=== PATIENT | male | born 1955 | race Caucasian/White ===

== ENCOUNTER → 2017-05-26 | Outpatient (REF) | payer BC, OTHER ==
[2017-05-26 18:25] LABS: C REACTIVE PROTEIN QUANTITATIV 2.13 MG/DL (0.00-0.30)
== END ==
LOC: M LAB REF 17:22
DX: R10.9 Unspecified abdominal pain (principal)
CPT/HCPCS: 86140

== ENCOUNTER → 2017-06-02 | Outpatient (REF) | payer BC, OTHER ==
[2017-06-02 20:53] LABS: C REACTIVE PROTEIN QUANTITATIV 0.75 MG/DL (0.00-0.30)
== END ==
LOC: M LAB REF 19:12
DX: R10.9 Unspecified abdominal pain (principal); H81.10 Benign paroxysmal vertigo, unspecified ear
CPT/HCPCS: 86140

== ENCOUNTER → 2017-12-28 | Outpatient (CLI) | payer BC | LOC: M RAD 10:08 | DX: R22.42 Localized swelling, mass and lump, left lower limb (principal) | CPT/HCPCS: 93971 ==

== ENCOUNTER → 2017-12-29 | Outpatient (CLI) | payer BC | LOC: M WUC 15:05 | DX: R22.42 Localized swelling, mass and lump, left lower limb (principal); M77.32 Calcaneal spur, left foot; M17.12 Unilateral primary osteoarthritis, left knee | CPT/HCPCS: 73552 ==

== ENCOUNTER → 2017-12-30 | Outpatient (REF) | payer BC ==
[2017-12-31 14:18] LABS: C REACTIVE PROTEIN QUANTITATIV 0.78 MG/DL (0.00-0.30)
[2018-01-02 00:06] LABS: Lyme Disease IgG/IgM Antibodie <0.91 ISR (0.00-0.90); Lyme Disease IgM Ab Quantitati <0.80 index (0.00-0.79)
== END ==
LOC: M LAB REF 13:10
DX: M25.562 Pain in left knee (principal)

== ENCOUNTER → 2018-02-18 | Outpatient (CLI) | payer BC | LOC: M RAD 14:45 | DX: S83.232A Complex tear of medial meniscus, current injury, left knee, initial encounter (principal); M22.42 Chondromalacia patellae, left knee; M71.22 Synovial cyst of popliteal space [Baker], left knee; M25.462 Effusion, left knee; M25.562 Pain in left knee; M17.12 Unilateral primary osteoarthritis, left knee | CPT/HCPCS: 73721 ==

== ENCOUNTER → 2018-06-19 | Outpatient (CLI) | payer BC ==
[~2018-06-19] MED LIST: /DULO30CA OR; /METH500TA OR; ACET500C OR; ASTEPRO OR; BACL10TA2 OR; BOTOX100 UNIT INJ; BUDEPRION; BUPR15TA OR; CLAR5CHW OR; FLECTOR1.3 TOP; FORMOTEROL; FORMOTEROL OR; GABA300T; GABA300T OR; KETOPROFEN PO; LEVA31IN INH; LISI10TA4 OR; LODINE; MOTR200T4; MULTIVIT; MULTIVIT OR; Meloxicam OR; NUCYNTA; NUCYNTA OR; OPANA ER OR; PERC5TAB8 PO; PREG50CA OR; PROT20TA11 OR; SUMA125TA OR; SYMB80AE IN; TIZA2TAB PO; UROXATRAL; VENL75TA2 PO; VITA500C24 PO; VITA500T OR; VITAMIN D OR; VITAMIN D50000 UNT; ZANT150T; ZYRT10TA6 OR
--- NOTE | 2018-06-21 09:46 | REP ---
MRI LEFT KNEE: TECHNIQUE: Axial proton density fat saturation, sagittal proton density T2 STIR, water excitation, coronal proton density, proton density fat saturation. There is a complex tear of the posterior horn of the medial meniscus. There is fraying centrally of the anterior horn of the medial meniscus as well as the anterior and posterior horns of the lateral meniscus. The cruciate and collateral ligaments are intact. The extensor mechanism is intact. There is moderately severe chondromalacia of the medial patellar facet with mild subchondral marrow edema. There is mild chondromalacia of the lateral patellar facet. There is a focal osteochrondral defect in the medial tibial plateau a couple of millimeters in diameter with an associated subchondral cyst which measures 0.9 x 1.9 x 1.7 cm. There is moderate diffuse chondromalacia of the medial femoral condyle. There is mild diffuse chondromalacia in the lateral joint compartment. There is a moderate joint effusion. There is an oval lobulated medial popliteal cyst with a maximum craniocaudal dimension of approximately 6.5 cm, AP diameter 3.1 cm and transverse 4.1 cm. There is a suprapatellar plica. IMPRESSION: Complex tear posterior horn medial meniscus. There is fraying centrally of the anterior horn of the medial meniscus as well as the anterior and posterior horns of the lateral meniscus. Small focal osteochrondral defect medial tibial plateau with associated subchondral cyst. Moderately severe chondromalacia medial patellar facet with mild subchondral marrow edema. Mild chondromalacia in the lateral joint compartment and lateral patellar facet. Moderate joint effusion. Popliteal cyst. Suprapatellar plica. Electronically Signed by Carlos Shah MD 06/21/2018 04:45 P
== END ==
LOC: M RAD 14:56
PROVIDERS: ATTEND Orthopaedic Surgery
DX: S83.232A Complex tear of medial meniscus, current injury, left knee, initial encounter (principal); X58.XXXA Exposure to other specified factors, initial encounter; Y92.9 Unspecified place or not applicable; M94.262 Chondromalacia, left knee; M25.462 Effusion, left knee; M71.22 Synovial cyst of popliteal space [Baker], left knee

== ENCOUNTER → 2018-11-26 | Outpatient (CLI) | payer BC ==
[~2018-11-26] MED LIST changes: -/DULO30CA OR; -/METH500TA OR; +CYMB1CAP5 OR; +LEVA0.3131 INH; -LEVA31IN INH; +METH1TAB40 OR
--- NOTE | 2018-11-26 18:55 | REP ---
Clinical: Lower back pain. Technique: AP, lateral, bilateral oblique and coned-down views of the lumbosacral spine. Comparison: 09/15/2013. Findings: Chronic levoconvex scoliosis along with moderate multilevel degenerative disc osteophyte complexes primarily along the right side with associated hypertrophic facet changes, osteophytosis and asymmetric disc space narrowing. No acute fracture / compression injury or subluxation. Impression: Chronic levoconvex scoliosis and moderate multilevel degenerative changes appear slightly increased when compared to 2013. If the patient remains symptomatic consider MRI for further investigation. Electronically Signed by Pilo Lobo MD 11/26/2018 06:46 P
== END ==
LOC: M WUC 17:11
PROVIDERS: ATTEND Physician Assistant
DX: M51.37 Other intervertebral disc degeneration, lumbosacral region (principal); M41.87 Other forms of scoliosis, lumbosacral region

== ENCOUNTER → 2019-03-08 | Outpatient (REF) | payer BC, OTHER | LOC: M LAB REF 11:36 | PROVIDERS: ATTEND Internal Medicine | DX: E29.1 Testicular hypofunction (principal) ==

== ENCOUNTER 2019-06-14 08:31 | Day surgery (SDC) | payer BC ==
[~2019-06-14] VITALS: Ht 170.2 cm; Wt 97.5 kg
[~2019-06-14 08:31] MED LIST changes: +BACL1TAB9 PO; +BOTO10VL; +BUPR300T92 PO; +CETI10TA8 PO; +CYAN500T8 PO; +GNP1000T11 PO; +IBUP80TA PO; +LEVAINH INH; +LISI10TA4 PO; +LYRI150C PO; +MAGN1CAP PO; +MULTCAP PO; +NS 1,000 ML IV ONE; +OMEG12003 PO; +OMEP40CA97 PO; +SYMB16INH INH; +VENL50TA2 PO; +VITA-122 PO
[2019-06-14] MEDS ORDERED: LIDOCAINE 2% INJ 100 MG/5 ML SDV (FOR ANES.) As Ordered ONE (09:18)
[2019-06-14] MEDS ORDERED: propofoL 200 MG/20 ML VIAL As Ordered ONE (09:18)
--- NOTE | 2019-06-14 10:33 | ROOR ---
Patient Name: Jairo Grande Procedure Date: 06/14/2019 9:47 AM Date of : 1955 Age: 64 Room: [facility] Gender: Male Note Status: Finalized Procedure: Upper GI endoscopy Indications: Abnormal CT of the GI tract Providers: Jamal Garcia MD Referring MD: Naomi BONE MD Requesting Provider: Medicines: Monitored Anesthesia Care Complications: No immediate complications. Procedure: Pre-Anesthesia Assessment: - The heart rate, respiratory rate, oxygen saturations, blood pressure, adequacy of pulmonary ventilation, and response to care were monitored throughout the procedure. The Endoscope was introduced through the mouth, and advanced to the second part of duodenum. The upper GI endoscopy was accomplished without difficulty. The patient tolerated the procedure well. Findings: The Z-line was regular and was found 39 cm from the incisors. A moderate-sized area of extrinsic compression was found in the upper third of the esophagus. No other significant abnormalities were identified in a careful examination of the stomach. The exam of the duodenum was otherwise normal. Impression: - Z-line regular, 39 cm from the incisors. - Extrinsic compression in the upper third of the esophagus. - No specimens collected. - The examination was otherwise normal. Recommendation: - Patient has a contact number available for emergencies. The signs and symptoms of potential delayed complications were discussed with the patient. Return to normal activities tomorrow. Written discharge instructions were provided to the patient. - High fiber diet. - Discharge patient to home. - Continue present medications. - Return to referring physician. - The findings and recommendations were discussed with the patient's family. Jamal Garcia MD Jamal Garcia MD 06/14/2019 10:33:01 AM Electronically signed by Jamal Garcia MD Number of Addenda: 0 Note Initiated On: 06/14/2019 9:47 AM Estimated Blood Loss: Estimated blood loss: none.
[2019-06-14 10:40] VITALS: BP 146/86
== END 2019-06-14 10:51 | disposition home or self-care (01) ==
LOC: M OPP 08:31
PROVIDERS: ATTEND Internal Medicine Gastroenterology
DX: K22.2 Esophageal obstruction (principal); R93.3 Abnormal findings on diagnostic imaging of other parts of digestive tract; Z88.5 Allergy status to narcotic agent; Z79.899 Other long term (current) drug therapy

== ENCOUNTER → 2019-07-06 | Outpatient (CLI) | payer BC ==
[~2019-07-06] MED LIST changes: -NS 1,000 ML IV ONE
--- NOTE | 2019-07-07 09:56 | REP ---
PET/CT: History: Monitoring esophageal carcinoma. Nodes and esophageal lesion. Comparisons: Comparison is made with CT study of the chest from [place] [facility]. TECHNIQUE: 67 minutes following the intravenous injection of a 8.42 mCi dose of F-18 FDG, three-dimensional PET scintigraphy is acquired from the skull base to the proximal thighs. Triplanar noncontrast CT scanning is acquired through the same anatomic range for attenuation correction, and image registration with scan parameters optimized to minimize radiation exposure to the patient. PET scintigraphy and CT datasets were fused and displayed on a workstation with multiplanar and projection display capability. PET/CT Findings: Head and neck soft tissues are unremarkable. There is no abnormal hypermetabolic uptake within the mediastinum. The low density right pretracheal mediastinal lymph nodes are seen with absent radiotracer accumulation. The area of soft tissue fullness in the mid esophagus at the level of the left mainstem bronchus is again seen and this is also not metabolically active. No abnormal pulmonary parenchymal uptake is seen. In the abdomen and pelvis, there is normal hepatic, splenic, gastrointestinal, and genitourinary FDG accumulation. Gallstones and a right renal cyst along with left colonic diverticulosis are incidental CT findings. Review this patient's prior electronic bed. This includes a MRI of the thoracic spine from the November 22, 2012 from which I believe I can see the mediastinal areas and the area of mural thickening in the mid esophagus which appear to be unchanged compared with current studies. This implies a benign etiology. In deed there is a suggestion of mass effect retrospectively visible below the aortic arch on the mid-esophagus on esophagram images from November 24, 2005. A intramural benign esophageal leiomyoma could have this appearance. Impression: Negative PET scintigraphy. No abnormal hypermetabolic uptake is seen. The mediastinal and mid esophageal abnormalities appear to be chronic on review of the prior imaging studies 2012 and 2005. Electronically Signed by Christian Cleaning MD 07/07/2019 10:12 A
== END ==
LOC: M PLARAD 12:12
PROVIDERS: ATTEND Internal Medicine Hematology & Oncology
DX: C91.10 Chronic lymphocytic leukemia of B-cell type not having achieved remission (principal); D47.2 Monoclonal gammopathy

== ENCOUNTER → 2019-09-28 | Outpatient (CLI) | payer BC ==
--- NOTE | 2019-09-28 15:49 | REP ---
CT BRAIN WITHOUT CONTRAST: HISTORY: Headache. Comparison head CT study is from February 02, 2007. CT FINDINGS: Preliminary digital co supervisor grounds and landscape radiograph is unremarkable. Bony calvarium is intact. No bony destructive lesion is seen. There is some vascular calcification in the distal internal carotid arteries bilaterally. The visualized paranasal sinuses are clear. No intraorbital abnormality is appreciated. Lateral, third, fourth ventricles are normal in size and position. Shah/white differentiation pattern is normal above below the tentorium. There is no evidence of intracranial hemorrhage. No extra-axial fluid collection is seen. No mass or midline shift is observed. IMPRESSION: Mild vascular calcification. Otherwise negative brain CT. Electronically Signed by Christian Cleaning MD 09/28/2019 04:09 P
== END ==
LOC: M RAD 14:07
PROVIDERS: ATTEND Nurse Practitioner Family
DX: R51 Headache (principal); I65.23 Occlusion and stenosis of bilateral carotid arteries

== ENCOUNTER → 2020-01-09 | Outpatient (REF) | payer BC ==
[2020-02-25 23:07] LABS: BASO # 0.1 10^3/uL (0.0-0.2); BASO % 0.6 % (0.0-1.0); EOS # 0.4 10^3/uL (0.0-0.5); HEMATOCRIT 40.3 % (42.0-52.0); HEMOGLOBIN 13.3 g/dl (13.5-17.5); LYMPH # 1.4 10^3/uL (1.5-5.0); LYMPH % 17.8 % (24.0-44.0); MEAN CORPUSCULAR VOLUME 96.9 fl (80.0-96.0); MONO # 0.7 10^3/uL (0.0-0.8); NEUTROPHILS # 5.2 10^3/uL (1.5-8.5); NEUTROPHILS % 67.3 % (36.0-66.0); PLATELET COUNT, AUTOMATED 216 10^3/uL (150-450); RED BLOOD COUNT 4.16 10^6/uL (4.30-6.10); WHITE BLOOD COUNT 7.8 10^3/uL (4.0-10.0)
[2020-03-06 00:43] LABS: ALBUMIN 3.7 GM/DL (3.2-5.2); ALT/SGPT 22 U/L (12-78); BILIRUBIN,TOTAL 0.5 MG/DL (0.2-1.0); BLOOD UREA NITROGEN 27 MG/DL (7-18); CALCIUM LEVEL 9.3 MG/DL (8.8-10.2); CARBON DIOXIDE LEVEL 28 MEQ/L (21-32); CHLORIDE LEVEL 109 MEQ/L (98-107); GLOMERULAR FILTRATION RATE > 60.0 (>49); GLUCOSE, FASTING 109 MG/DL (70-100); IMMUNOGLOBULIN G 454 MG/DL (681-1648); IMMUNOGLOBULIN M 21.2 MG/DL (40-230); POTASSIUM SERUM 4.1 MEQ/L (3.5-5.1); SODIUM LEVEL 140 MEQ/L (136-145); TOTAL PROTEIN 6.5 GM/DL (6.4-8.2)
== END ==
LOC: M WUC 16:26
PROVIDERS: ATTEND Nurse Practitioner
DX: C91.10 Chronic lymphocytic leukemia of B-cell type not having achieved remission (principal); D47.2 Monoclonal gammopathy

== ENCOUNTER → 2020-10-29 | Outpatient (REF) | payer MEDICARE ==
[~2020-10-29] MED LIST changes: +CYAN500T14 PO; -CYAN500T8 PO; +LISI10TA22 PO; -LISI10TA4 PO; -VITA-122 PO; +VITA-168 PO
== END ==
LOC: M LAB REF 16:57
PROVIDERS: ATTEND Internal Medicine
DX: Z01.89 Encounter for other specified special examinations (principal)

== ENCOUNTER → 2021-03-11 | Outpatient (CLI) | payer MEDICARE ==
[~2021-03-11] MED LIST changes: +OMEP40CA4 PO; -OMEP40CA97 PO
== END ==
LOC: M WUC 14:54
PROVIDERS: ATTEND Urology
DX: Z12.5 Encounter for screening for malignant neoplasm of prostate (principal); R97.20 Elevated prostate specific antigen [PSA]

== ENCOUNTER → 2022-07-21 | Outpatient (REF) | payer MEDICARE ==
[~2022-07-21] MED LIST changes: +CETI-25 PO; -CETI10TA8 PO
== END ==
LOC: M LABWUC 16:13
PROVIDERS: ATTEND Urology
DX: R97.20 Elevated prostate specific antigen [PSA] (principal)

== ENCOUNTER → 2023-03-03 | Outpatient (REF) | payer MEDICARE, OTHER ==
[2023-03-03 18:56] LABS: BASO % 0.6 % (0.0-1.0); EOS # 0.6 10^3/uL (0.0-0.5); EOS % 8.7 % (0.0-3.0); HEMATOCRIT 41.5 % (42.0-52.0); LYMPH # 1.9 10^3/uL (1.5-5.0); LYMPH % 30.5 % (24.0-44.0); MEAN CORPUSCULAR HEMOGLOBIN 32.3 pg (27.0-33.0); MEAN CORPUSCULAR HGB CONC 33.7 g/dl (32.0-36.5); MEAN CORPUSCULAR VOLUME 95.8 fl (80.0-96.0); MONO # 0.6 10^3/uL (0.0-0.8); MONO % 9.6 % (2.0-8.0); NEUTROPHILS # 3.2 10^3/uL (1.5-8.5); NEUTROPHILS % 50.3 % (36.0-66.0); PLATELET COUNT, AUTOMATED 245 10^3/uL (150-450); RED BLOOD COUNT 4.33 10^6/uL (4.30-6.10); WHITE BLOOD COUNT 6.3 10^3/uL (4.0-10.0)
[2023-03-03 19:25] LABS: PERCENT SATURATION 33.1 % (19.7-50.0)
[2023-03-03 19:27] LABS: FERRITIN 28.9 NG/ML (10.5-307.3)
== END ==
LOC: M LABWUC 18:24
PROVIDERS: ATTEND Orthopaedic Surgery Adult Reconstructive Orthopaedic Surgery
DX: Z01.818 Encounter for other preprocedural examination (principal); M25.562 Pain in left knee; M17.12 Unilateral primary osteoarthritis, left knee

== ENCOUNTER → 2023-03-03 | Outpatient (CLI) | payer MEDICARE, OTHER | LOC: M WUC 15:30 | PROVIDERS: ATTEND Internal Medicine Pulmonary Disease | DX: Z57.39 Occupational exposure to other air contaminants (principal) ==

== ENCOUNTER → 2023-03-26 | Outpatient (REF) | payer MEDICARE, OTHER ==
[2023-03-26 15:19] LABS: APPEARANCE, URINE CLEAR (CLEAR); BACTERIA, URINE AUTO NEGATIVE (NEGATIVE); BILIRUBIN, URINE AUTO NEGATIVE (NEGATIVE); BLOOD, URINE BLOOD NEGATIVE (NEGATIVE); COLOR, URINE YELLOW (YELLOW); GLUCOSE, URINE (UA) AUTO NEGATIVE (NEGATIVE); KETONE, URINE AUTO TRACE mg/dL (NEGATIVE); LEUKOCYTE ESTERASE, URINE AUTO NEGATIVE (NEGATIVE); MUCUS, URINE SMALL (NEGATIVE); NITRITE, URINE AUTO NEGATIVE (NEGATIVE); PROTEIN, URINE AUTO NEGATIVE (NEGATIVE); RBC, URINE AUTO 3 /HPF (0-3); SQUAMOUS EPITHELIAL CELL UR AU 0 /HPF (0-6); UROBILINOGEN, URINE AUTO 0.2 mg/dL (0.0-2.0); WBC, URINE AUTO 0 /HPF (0-3)
== END ==
LOC: M LAB REF 12:39
PROVIDERS: ATTEND Internal Medicine
DX: R31.9 Hematuria, unspecified (principal)

== ENCOUNTER → 2023-05-04 | Outpatient (REF) | payer MEDICARE, OTHER ==
[2023-05-05 14:34] LABS: PERCENT SATURATION 27.5 % (19.7-50.0)
[2023-05-05 14:37] LABS: FERRITIN 96.9 NG/ML (10.5-307.3)
== END ==
LOC: M LAB REF 12:35
PROVIDERS: ATTEND Internal Medicine
DX: D64.9 Anemia, unspecified (principal)

== ENCOUNTER → 2023-07-27 | Outpatient (REF) | payer MEDICARE | LOC: M LAB REF 16:20 | PROVIDERS: ATTEND Internal Medicine | DX: N39.0 Urinary tract infection, site not specified (principal) ==

== ENCOUNTER → 2023-08-11 | Outpatient (REF) | payer MEDICARE ==
[2023-08-11 13:03] LABS: APPEARANCE, URINE HAZY (CLEAR); BACTERIA, URINE AUTO NEGATIVE (NEGATIVE); BILIRUBIN, URINE AUTO NEGATIVE (NEGATIVE); BLOOD, URINE BLOOD NEGATIVE (NEGATIVE); COLOR, URINE AMBER (YELLOW); GLUCOSE, URINE (UA) AUTO NEGATIVE (NEGATIVE); KETONE, URINE AUTO TRACE mg/dL (NEGATIVE); LEUKOCYTE ESTERASE, URINE AUTO TRACE (NEGATIVE); MUCUS, URINE SMALL (NEGATIVE); NITRITE, URINE AUTO NEGATIVE (NEGATIVE); PROTEIN, URINE AUTO NEGATIVE (NEGATIVE); RBC, URINE AUTO 1 /HPF (0-3); SPECIFIC GRAVITY URINE AUTO 1.024 (1.002-1.035); SQUAMOUS EPITHELIAL CELL UR AU 0 /HPF (0-6); WBC, URINE AUTO 3 /HPF (0-3)
== END ==
LOC: M LAB REF 12:21
PROVIDERS: ATTEND Internal Medicine
DX: R31.9 Hematuria, unspecified (principal); N40.0 Benign prostatic hyperplasia without lower urinary tract symptoms

== ENCOUNTER → 2023-09-16 | Outpatient (REF) | payer MEDICARE | LOC: M LABWUC 16:38 | PROVIDERS: ATTEND Urology | DX: R97.20 Elevated prostate specific antigen [PSA] (principal) ==

== ENCOUNTER 2024-02-15 12:22 | Day surgery (SDC) | payer MEDICARE ==
[~2024-02-15] VITALS: Ht 170.2 cm; Wt 93.7 kg
[~2024-02-15 12:22] MED LIST changes: +BUPR-597 PO; -BUPR300T92 PO; +EFFE75CA2 PO; +EXCETAB32 PO; +IRON27TA2 PO; +NS 1,000 ML IV ONE; +THERTAB52 PO
[2024-02-15] MEDS ORDERED: propofoL 200 MG/20 ML VIAL As Ordered ONE (13:18)
[2024-02-15] MEDS ORDERED: LIDOCAINE 2% 100MG/5ML SDV (FOR ANES.) As Ordered ONE (13:18)
[2024-02-15 14:09] VITALS: TEMP 97.5
[2024-02-15 14:28] VITALS: BP 146/75; O2SAT 96
== END 2024-02-15 14:38 | disposition home or self-care (01) ==
LOC: M OPP 12:22
PROVIDERS: ATTEND Internal Medicine Gastroenterology
DX: D50.9 Iron deficiency anemia, unspecified (principal); K64.0 First degree hemorrhoids; K44.9 Diaphragmatic hernia without obstruction or gangrene; K57.30 Diverticulosis of large intestine without perforation or abscess without bleeding; K22.89 Other specified disease of esophagus; R12 Heartburn; I10 Essential (primary) hypertension; Z90.49 Acquired absence of other specified parts of digestive tract; Z87.19 Personal history of other diseases of the digestive system; J45.909 Unspecified asthma, uncomplicated; Z79.899 Other long term (current) drug therapy; Z79.51 Long term (current) use of inhaled steroids; J38.3 Other diseases of vocal cords; Z88.5 Allergy status to narcotic agent

== ENCOUNTER → 2024-04-04 | Outpatient (CLI) | payer MEDICARE ==
[~2024-04-04] MED LIST changes: +LEVA15HF2 INH; -LEVAINH INH; -NS 1,000 ML IV ONE
== END ==
LOC: M WUC 11:22
PROVIDERS: ATTEND Internal Medicine Pulmonary Disease
DX: Z57.39 Occupational exposure to other air contaminants (principal)

== ENCOUNTER → 2025-01-30 | Outpatient (REF) | payer MEDICARE, OTHER ==
[~2025-01-30] MED LIST changes: -BUPR-597 PO; +BUPR-766 PO
== END ==
LOC: M LAB REF 12:10
PROVIDERS: ATTEND Internal Medicine
DX: Z23 Encounter for immunization (principal)

== ENCOUNTER → 2025-04-03 | Outpatient (CLI) | payer OTHER, MEDICARE | LOC: M WUC 13:07 | PROVIDERS: ATTEND Internal Medicine Pulmonary Disease | DX: Z57.39 Occupational exposure to other air contaminants (principal) ==